=== PATIENT | female | born 1945 | race Caucasian/White ===

== ENCOUNTER 2023-04-28 16:18 | Inpatient (IN) | payer MEDICARE ==
[~2023-04-28] VITALS: Ht 165.1 cm; Wt 51.3 kg
[2023-04-28] MEDS ORDERED: ENOX40DI9 SQ (16:28)
[2023-04-28] MEDS ORDERED: SENN8.6T19 PO (16:28)
[2023-04-28] MEDS ORDERED: CHLO25AM IM (16:28)
[2023-04-28] MEDS ORDERED: OLAN5TAB70 PO (16:28)
[2023-04-28] MEDS ORDERED: ACET-2605 PO (16:28)
[2023-04-28] MEDS ORDERED: POLY17PO4 PO (16:28)
[2023-04-28] MEDS ORDERED: MELA5TAB21 PO (16:28)
[2023-04-28] MEDS ORDERED: HALO5TAB PO (16:28)
[2023-04-28] MEDS ORDERED: ACET325C7 PO (16:28)
[2023-04-28] MEDS ORDERED: MAGNESIUM HYDROXIDE 30 ML LIQUID UDC PO PRN (17:15)
[2023-04-28] MEDS ORDERED: MAG HYDROX/AL HYDROX/SIMETH 30 ML LIQUID UDC PO PRN (17:15)
[2023-04-28 18:44] VITALS: BP 114/71; TEMP 98; O2SAT 99
[2023-04-28 19:54] VITALS: BP 110/52; TEMP 97.8; O2SAT 96
[2023-04-29 07:30] VITALS: BP 105/63; TEMP 98; O2SAT 98
[2023-04-29 08:08] LABS: BASOPHILS % (AUTO) 0.8 % (0.0-2.0); EOSINOPHILS # (AUTO) 0.1 K/uL (0.0-0.7); EOSINOPHILS % (AUTO) 1.7 % (0.0-7.0); HEMATOCRIT 36.2 % (31.2-41.9); HEMOGLOBIN 12.1 g/dL (10.9-14.3); LYMPHOCYTES # (AUTO) 1.2 K/uL (0.8-4.8); LYMPHOCYTES % (AUTO) 25.5 % (20.5-51.5); MEAN CORPUSCULAR HEMOGLOBIN 29.7 uug (24.7-32.8); MEAN CORPUSCULAR HGB CONC 34 g/dL (32.3-35.6); MEAN CORPUSCULAR VOLUME 88.6 fL (75.5-95.3); MONOCYTES # (AUTO) 0.3 K/uL (0.1-1.30); MONOCYTES % (AUTO) 7.1 % (0.0-11.0); NEUTROPHILS # (AUTO) 3.1 K/uL (1.8-8.9); NEUTROPHILS % (AUTO) 64.9 % (38.5-71.5); PLATELET COUNT (AUTO) 253 K/uL (179-408); RED BLOOD CELL COUNT(AUTO) 4.09 MIL/uL (3.63-4.92); RED CELL DISTRIBUTION WIDTH 13.8 % (12.3-17.7); WHITE BLOOD COUNT (AUTO) 4.7 K/uL (3.8-11.8)
[2023-04-29 08:15] LABS: DIFFERENTIAL COMMENT 1
[2023-04-29 08:24] LABS: ALANINE AMINOTRANSFERASE 32 U/L (14-59); ALBUMIN 2.3 g/dL (3.4-5.0); ALKALINE PHOSPHATASE 78 U/L (50-136); ASPARTATE AMINOTRANSFERASE 19 U/L (15-37); BILIRUBIN,TOTAL 0.2 mg/dL (0.2-1.0); CALCIUM 9.1 mg/dL (8.5-10.1); CARBON DIOXIDE 28 mmol/L (21-32); CHLORIDE 107 mmol/L (98-107); CREATININE 0.8 mg/dL (0.6-1.3); GLUCOSE 94 mg/dL (74-106); POTASSIUM 4.5 mmol/L (3.5-5.1); SODIUM SERUM 141 mmol/L (136-145); TOTAL PROTEIN, SERUM 5.5 g/dL (6.4-8.2); UREA NITROGEN, BLOOD 24 mg/dL (7-18)
[2023-04-29] MEDS: MIRALAX 17 GM POWD.PACK PO SCH (09:07)
[2023-04-29] MEDS: OLANZAPINE 2.5 MG TABLET PO SCH ×2 (13:32→16:59)
[2023-04-29 16:06] VITALS: BP 100/64; TEMP 98; O2SAT 98
[2023-04-29 19:56] VITALS: BP 106/72; TEMP 98.2; O2SAT 96
[2023-04-29] MEDS: SENNOSIDES 1 TABLET PO SCH (20:05)
[2023-04-29] MEDS: DIVALPROEX 125 MG TABLET.DR PO SCH (20:05)
[2023-04-29] MEDS: TEMAZEPAM 7.5 MG CAPSULE PO PRN (20:05)
[2023-04-29] MEDS: CLONAZEPAM 0.5 MG TABLET PO PRN (22:07)
[2023-04-30] MEDS: CLONAZEPAM 0.5 MG TABLET PO PRN ×2 (03:36→22:32)
[2023-04-30 08:31] VITALS: BP 101/68; TEMP 97.8; O2SAT 96
[2023-04-30] MEDS: MIRALAX 17 GM POWD.PACK PO SCH (08:31)
[2023-04-30] MEDS: DIVALPROEX 125 MG TABLET.DR PO SCH ×2 (08:31→21:08)
[2023-04-30] MEDS: OLANZAPINE 2.5 MG TABLET PO SCH ×2 (08:31→17:27)
[2023-04-30 16:10] VITALS: BP 117/63; TEMP 98; O2SAT 98
[2023-04-30 20:11] VITALS: BP 102/66; TEMP 98.1; O2SAT 97
[2023-04-30] MEDS: TEMAZEPAM 7.5 MG CAPSULE PO PRN (21:07)
[2023-04-30] MEDS: SENNOSIDES 1 TABLET PO SCH (21:08)
[2023-05-01 07:41] VITALS: BP 93/51; TEMP 97.7; O2SAT 98
[2023-05-01] MEDS ORDERED: OLANZAPINE 2.5 MG TABLET PO SCH (09:00)
[2023-05-01] MEDS: OLANZAPINE 5 MG TABLET PO SCH ×2 (09:03→16:37)
[2023-05-01] MEDS: DIVALPROEX 125 MG TABLET.DR PO SCH ×2 (09:03→20:21)
[2023-05-01] MEDS: MIRALAX 17 GM POWD.PACK PO SCH (09:03)
[2023-05-01 10:38] VITALS: BP 100/47; O2SAT 95
[2023-05-01 16:26] VITALS: BP 100/62; TEMP 98.1; O2SAT 98
[2023-05-01] MEDS: CLONAZEPAM 0.5 MG TABLET PO PRN (19:29)
[2023-05-01 20:00] VITALS: BP 96/71; TEMP 97.7; O2SAT 97
[2023-05-01] MEDS: SENNOSIDES 1 TABLET PO SCH (20:21)
[2023-05-02 08:25] VITALS: BP 124/62; TEMP 98; O2SAT 98
[2023-05-02] MEDS: OLANZAPINE 5 MG TABLET PO SCH ×2 (08:33→16:20)
[2023-05-02] MEDS: MIRALAX 17 GM POWD.PACK PO SCH (08:33)
[2023-05-02] MEDS: DIVALPROEX 125 MG TABLET.DR PO SCH ×2 (08:33→20:05)
[2023-05-02 16:18] VITALS: BP 99/61; TEMP 98; O2SAT 98
[2023-05-02] MEDS: CLONAZEPAM 0.5 MG TABLET PO PRN (20:02)
[2023-05-02] MEDS: SENNOSIDES 1 TABLET PO SCH (20:05)
[2023-05-02 20:07] VITALS: BP 101/58; TEMP 98; O2SAT 97
[2023-05-02] MEDS: TEMAZEPAM 7.5 MG CAPSULE PO PRN (20:51)
[2023-05-02] MEDS ORDERED: OLANZAPINE 10 MG VIAL IM ONE (23:15)
[2023-05-03] MEDS: CLONAZEPAM 0.5 MG TABLET PO PRN ×3 (03:33→22:19)
[2023-05-03] MEDS: OLANZAPINE 5 MG TABLET PO SCH ×2 (09:00→16:53)
[2023-05-03] MEDS: MIRALAX 17 GM POWD.PACK PO SCH (09:00)
[2023-05-03] MEDS ORDERED: DIVALPROEX 125 MG TABLET.DR PO SCH (09:30)
[2023-05-03] MEDS: DIVALPROEX 250 MG TABLET.DR PO SCH ×2 (09:37→20:25)
[2023-05-03 16:24] VITALS: BP 101/54; TEMP 98; O2SAT 97
[2023-05-03 20:00] VITALS: BP 124/59; TEMP 98.1
[2023-05-03] MEDS: TEMAZEPAM 7.5 MG CAPSULE PO PRN (20:25)
[2023-05-03] MEDS: SENNOSIDES 1 TABLET PO SCH (20:30)
[2023-05-04] MEDS: CLONAZEPAM 0.5 MG TABLET PO PRN ×2 (04:59→23:42)
[2023-05-04 08:32] VITALS: BP 114/61; TEMP 98.2; O2SAT 98
[2023-05-04] MEDS: MIRALAX 17 GM POWD.PACK PO SCH (09:00)
[2023-05-04] MEDS: DIVALPROEX 250 MG TABLET.DR PO SCH ×2 (09:19→20:03)
[2023-05-04] MEDS: OLANZAPINE 5 MG TABLET PO SCH ×2 (09:19→17:22)
[2023-05-04 15:19] VITALS: BP 110/65; TEMP 98.2; O2SAT 98
[2023-05-04 20:00] VITALS: BP 116/65; TEMP 98.2; O2SAT 93
[2023-05-04] MEDS: TEMAZEPAM 7.5 MG CAPSULE PO PRN (20:03)
[2023-05-04] MEDS: SENNOSIDES 1 TABLET PO SCH (20:03)
[2023-05-05] MEDS: DIVALPROEX 250 MG TABLET.DR PO SCH (08:32)
[2023-05-05] MEDS: CLONAZEPAM 0.5 MG TABLET PO PRN ×2 (08:32→19:46)
[2023-05-05] MEDS: MIRALAX 17 GM POWD.PACK PO SCH (08:32)
[2023-05-05] MEDS: OLANZAPINE 5 MG TABLET PO SCH ×2 (08:32→16:42)
[2023-05-05 08:41] VITALS: BP 134/67; TEMP 98; O2SAT 96
[2023-05-05 15:40] VITALS: BP 102/61; TEMP 98; O2SAT 98
[2023-05-05 20:00] VITALS: BP 118/56; TEMP 98.9; O2SAT 98
[2023-05-05] MEDS: DIVALPROEX SPRINKLE 125 MG CAP.SPRINK PO SCH (20:19)
[2023-05-05] MEDS: SENNOSIDES 1 TABLET PO SCH (20:45)
[2023-05-06 09:42] VITALS: BP 146/56; TEMP 98; O2SAT 96
[2023-05-06] MEDS: OLANZAPINE 5 MG TABLET PO SCH ×2 (10:10→17:23)
[2023-05-06] MEDS: DIVALPROEX SPRINKLE 125 MG CAP.SPRINK PO SCH ×2 (10:10→20:48)
[2023-05-06] MEDS: MIRALAX 17 GM POWD.PACK PO SCH (10:10)
[2023-05-06 20:23] VITALS: BP 136/64; TEMP 98.2; O2SAT 95
[2023-05-06] MEDS: CLONAZEPAM 0.5 MG TABLET PO PRN (20:48)
[2023-05-06] MEDS: SENNOSIDES 1 TABLET PO SCH (20:48)
[2023-05-06] MEDS: TEMAZEPAM 7.5 MG CAPSULE PO PRN (22:09)
[2023-05-07] MEDS: CLONAZEPAM 0.5 MG TABLET PO PRN ×2 (00:36→20:06)
[2023-05-07] MEDS: DIVALPROEX SPRINKLE 125 MG CAP.SPRINK PO SCH ×2 (09:29→20:08)
[2023-05-07] MEDS: OLANZAPINE 5 MG TABLET PO SCH ×2 (09:29→16:58)
[2023-05-07] MEDS: MIRALAX 17 GM POWD.PACK PO SCH (09:30)
[2023-05-07 10:21] VITALS: BP 106/55; TEMP 98.2; O2SAT 99
[2023-05-07] MEDS: ENSURE ENLIVE (VAN) 240 ML LIQUID PO SCH (16:59)
[2023-05-07 19:57] VITALS: BP 111/78; TEMP 98.1; O2SAT 99
[2023-05-07] MEDS: SENNOSIDES 1 TABLET PO SCH (20:07)
[2023-05-07] MEDS ORDERED: OLANZAPINE 10 MG VIAL IM ONE (22:30)
[2023-05-08] MEDS: TEMAZEPAM 7.5 MG CAPSULE PO PRN ×2 (00:47→23:09)
[2023-05-08] MEDS: ENSURE ENLIVE (VAN) 240 ML LIQUID PO SCH ×2 (08:00→17:00)
[2023-05-08 08:11] VITALS: BP 113/58; TEMP 97.8; O2SAT 99
[2023-05-08] MEDS: OLANZAPINE 5 MG TABLET PO SCH ×2 (08:46→17:51)
[2023-05-08] MEDS: DIVALPROEX SPRINKLE 125 MG CAP.SPRINK PO SCH ×2 (08:47→20:37)
[2023-05-08] MEDS: MIRALAX 17 GM POWD.PACK PO SCH (08:47)
[2023-05-08 16:47] VITALS: BP 96/59; TEMP 97.9; O2SAT 98
[2023-05-08 20:09] VITALS: BP 111/56; TEMP 97.8; O2SAT 96
[2023-05-08] MEDS: CLONAZEPAM 0.5 MG TABLET PO PRN (20:37)
[2023-05-08] MEDS: SENNOSIDES 1 TABLET PO SCH (20:37)
[2023-05-09] MEDS: ENSURE ENLIVE (VAN) 240 ML LIQUID PO SCH ×2 (08:00→17:00)
[2023-05-09] MEDS: DIVALPROEX SPRINKLE 125 MG CAP.SPRINK PO SCH ×2 (08:37→20:47)
[2023-05-09] MEDS: OLANZAPINE 5 MG TABLET PO SCH ×2 (08:37→17:06)
[2023-05-09] MEDS: ACETAMINOPHEN 325 MG TABLET PO PRN (08:37)
[2023-05-09] MEDS: MIRALAX 17 GM POWD.PACK PO SCH (08:37)
[2023-05-09] MEDS: CLONAZEPAM 0.5 MG TABLET PO PRN ×2 (08:50→20:47)
[2023-05-09 08:55] VITALS: BP 107/72; TEMP 98; O2SAT 98
[2023-05-09 14:02] LABS: BASOPHILS # (AUTO) 0.2 K/UL (0.0-0.2); BASOPHILS % (AUTO) 3.5 % (0.0-2.0); EOSINOPHILS # (AUTO) 0.1 K/uL (0.0-0.7); EOSINOPHILS % (AUTO) 1.6 % (0.0-7.0); HEMATOCRIT 34.9 % (31.2-41.9); HEMOGLOBIN 11.7 g/dL (10.9-14.3); LYMPHOCYTES % (AUTO) 23.1 % (20.5-51.5); MEAN CORPUSCULAR HEMOGLOBIN 29.7 uug (24.7-32.8); MEAN CORPUSCULAR HGB CONC 34 g/dL (32.3-35.6); MEAN CORPUSCULAR VOLUME 88.3 fL (75.5-95.3); MONOCYTES # (AUTO) 0.3 K/uL (0.1-1.30); MONOCYTES % (AUTO) 7.2 % (0.0-11.0); NEUTROPHILS # (AUTO) 2.8 K/uL (1.8-8.9); NEUTROPHILS % (AUTO) 64.6 % (38.5-71.5); PLATELET COUNT (AUTO) 397 K/uL (179-408); RED BLOOD CELL COUNT(AUTO) 3.95 MIL/uL (3.63-4.92); RED CELL DISTRIBUTION WIDTH 13.5 % (12.3-17.7); WHITE BLOOD COUNT (AUTO) 4.3 K/uL (3.8-11.8)
[2023-05-09 14:20] LABS: ALBUMIN 2.3 g/dL (3.4-5.0); BILIRUBIN,TOTAL 0.2 mg/dL (0.2-1.0); CREATININE 0.8 mg/dL (0.6-1.3); MAGNESIUM 2.1 mg/dL (1.8-2.4); POTASSIUM 4.3 mmol/L (3.5-5.1); TOTAL PROTEIN, SERUM 5.7 g/dL (6.4-8.2)
[2023-05-09 16:10] VITALS: BP 91/58; TEMP 98; O2SAT 98
[2023-05-09 20:16] VITALS: BP 100/51; TEMP 98.1; O2SAT 98
[2023-05-09] MEDS: SENNOSIDES 1 TABLET PO SCH (20:47)
[2023-05-09] MEDS: TEMAZEPAM 7.5 MG CAPSULE PO PRN (22:15)
[2023-05-10] MEDS: ENSURE ENLIVE (VAN) 240 ML LIQUID PO SCH ×2 (08:00→16:20)
[2023-05-10] MEDS: CLONAZEPAM 0.5 MG TABLET PO PRN ×2 (08:10→21:26)
[2023-05-10] MEDS: OLANZAPINE 5 MG TABLET PO SCH ×2 (08:33→16:20)
[2023-05-10] MEDS: DIVALPROEX SPRINKLE 125 MG CAP.SPRINK PO SCH ×2 (08:33→20:07)
[2023-05-10] MEDS: MIRALAX 17 GM POWD.PACK PO SCH (08:33)
[2023-05-10 16:18] VITALS: BP 99/56; TEMP 98; O2SAT 97
[2023-05-10] MEDS: REMEDY ESSENTIAL ZINC PASTE 113 GM TOP PRN (16:21)
[2023-05-10 20:04] VITALS: BP 126/62; TEMP 98.1; O2SAT 96
[2023-05-10] MEDS: SENNOSIDES 1 TABLET PO SCH (20:07)
[2023-05-11] MEDS: TEMAZEPAM 7.5 MG CAPSULE PO PRN ×2 (00:07→22:01)
[2023-05-11] MEDS: CLONAZEPAM 0.5 MG TABLET PO PRN ×3 (04:08→23:17)
[2023-05-11] MEDS: REMEDY ESSENTIAL ZINC PASTE 113 GM TOP PRN ×3 (06:35→21:54)
[2023-05-11 07:30] VITALS: BP 107/62; TEMP 98; O2SAT 98
[2023-05-11] MEDS: OLANZAPINE 5 MG TABLET PO SCH ×2 (08:21→17:10)
[2023-05-11] MEDS: ENSURE ENLIVE (VAN) 240 ML LIQUID PO SCH ×2 (08:21→14:02)
[2023-05-11] MEDS: DIVALPROEX SPRINKLE 125 MG CAP.SPRINK PO SCH ×2 (08:21→21:08)
[2023-05-11] MEDS: MIRALAX 17 GM POWD.PACK PO SCH (08:21)
[2023-05-11 15:41] VITALS: BP 110/62; TEMP 98; O2SAT 98
[2023-05-11 20:10] VITALS: BP 112/60; TEMP 98.2; O2SAT 98
[2023-05-11] MEDS: SENNOSIDES 1 TABLET PO SCH (21:08)
[2023-05-12] MEDS: ACETAMINOPHEN 325 MG TABLET PO PRN (04:56)
[2023-05-12] MEDS: CLONAZEPAM 0.5 MG TABLET PO PRN ×3 (04:56→15:02)
[2023-05-12 07:46] VITALS: BP 139/62; TEMP 97.8; O2SAT 98
[2023-05-12] MEDS: OLANZAPINE 5 MG TABLET PO SCH ×2 (09:29→17:12)
[2023-05-12] MEDS: MIRALAX 17 GM POWD.PACK PO SCH (09:29)
[2023-05-12] MEDS: ENSURE ENLIVE (VAN) 240 ML LIQUID PO SCH (09:30)
[2023-05-12] MEDS: DIVALPROEX SPRINKLE 125 MG CAP.SPRINK PO SCH ×2 (09:30→20:13)
[2023-05-12 16:20] VITALS: BP 140/65; TEMP 98; O2SAT 98
[2023-05-12 20:00] VITALS: BP 113/63; TEMP 98.1; O2SAT 98
[2023-05-12] MEDS: SENNOSIDES 1 TABLET PO SCH (20:13)
[2023-05-12] MEDS: TEMAZEPAM 7.5 MG CAPSULE PO PRN (21:51)
[2023-05-13] MEDS: CLONAZEPAM 0.5 MG TABLET PO PRN (01:12)
[2023-05-13] MEDS: REMEDY ESSENTIAL ZINC PASTE 113 GM TOP PRN ×2 (06:01→08:22)
[2023-05-13 07:37] VITALS: BP 126/63; TEMP 98; O2SAT 98
[2023-05-13] MEDS: MIRALAX 17 GM POWD.PACK PO SCH (08:22)
[2023-05-13] MEDS: OLANZAPINE 5 MG TABLET PO SCH (08:22)
[2023-05-13] MEDS: DIVALPROEX SPRINKLE 125 MG CAP.SPRINK PO SCH (08:22)
[2023-05-13] MEDS: ENSURE ENLIVE (VAN) 240 ML LIQUID PO SCH (08:23)
== END 2023-05-13 12:15 | DRG 885 ==
LOC: ER 16:33 → GPS 17:08
PROVIDERS: ADMIT Psychiatry & Neurology Psychiatry; ATTEND Internal Medicine
DX: F29 Unspecified psychosis not due to a substance or known physiological condition (principal); E44.0 Moderate protein-calorie malnutrition; Z68.1 Body mass index [BMI] 19.9 or less, adult; F02.82 Dementia in other diseases classified elsewhere, unspecified severity, with psychotic disturbance; F02.84 Dementia in other diseases classified elsewhere, unspecified severity, with anxiety; F02.83 Dementia in other diseases classified elsewhere, unspecified severity, with mood disturbance; Z73.6 Limitation of activities due to disability; M62.81 Muscle weakness (generalized); F41.9 Anxiety disorder, unspecified; F32.A Depression, unspecified; F20.0 Paranoid schizophrenia; G30.9 Alzheimer's disease, unspecified; Z20.822 Contact with and (suspected) exposure to COVID-19
CPT/HCPCS: 36415; 71045; 80164; 83735; 85025; 93005; A6209; J2358; J3490